=== PATIENT | male | born 1960 | race Caucasian/White ===

== ENCOUNTER 2021-06-07 04:41 | Emergency (ER) | payer OTHER ==
[~2021-06-07] VITALS: Ht 170.2 cm; Wt 65.0 kg
[2021-06-07] MEDS ORDERED: KETOROLAC 30 MG/ML VIAL. IM ONE (05:30)
--- NOTE | 2021-06-07 05:33 | RAD ---
3 views lumbar spine and 3 view sacrum dated 06/07/2021. COMPARISON: None CLINICAL INDICATION: Pain after fall. FINDINGS: 3 views lumbar spine show evidence of laminectomy and posterolateral fusion from L3 to L5. No hardwar e complication. Sagittal alignment is anatomic. Vertebral body heights are maintained. Mild to modera te endplate hypertrophic changes throughout with moderate arthrosis lower lumbar apophyseal joints. T here is severe disc space narrowing at L2-L3. Mild dextroconvex curvature. 3 views of sacrum/coccyx show intact pelvic ring. There is mild hypertrophic change of the bilateral SI joint. No erosive changes or bone destruction. No ankylosis. Coccygeal tip appears to be intact. IMPRESSION: 1. No acute radiographic abnormality. 2. Moderate multilevel lumbar spondylosis with evidence of prior laminectomy and posterior lateral fu red from L3 to L5. 3. No apparent acute abnormality of the sacrum. Electronically signed by: Feliciano Ortez MD (06/07/2021 5:30 AM) LÓPEZ
[2021-06-07 05:46] LABS: BILIRUBIN,URINE NEGATIVE (NEG); CLARITY,URINE CLEAR; COLOR,URINE YELLOW; NITRITE,URINE NEGATIVE (NEG); PROTEIN,URINE 30 mg/dL (NEG-TRACE); UROBILINOGEN,URINE 0.2 mg/dL (0.2 mg/dL)
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
[2021-06-07 06:21] VITALS: BP 156/76
[2021-06-07 06:29] LABS: BACTERIA,URINE 0 /HPF (0-FEW); RBC,URINE 0 /HPF (0-2); WBC,URINE 0 /HPF (0-4)
[2021-06-07] MEDS ORDERED: CYCL10TA19 PO (06:32)
== END 2021-06-07 06:48 | disposition home or self-care (01) ==
LOC: ER 04:41
DX: G89.29 Other chronic pain (principal); M54.50 Low back pain, unspecified; F17.200 Nicotine dependence, unspecified, uncomplicated; F10.20 Alcohol dependence, uncomplicated; Z91.81 History of falling; Y90.9 Presence of alcohol in blood, level not specified
CPT/HCPCS: 72100; 72220; 81001; 96372; 99284; J1885